=== PATIENT | female | born 1965 | race Caucasian/White ===

== ENCOUNTER 2017-08-25 09:21 | Emergency (ER) | payer OTHER ==
[~2017-08-25] VITALS: Ht 162.6 cm; Wt 107.0 kg
[~2017-08-25 09:21] MED LIST: KETO10TA2 PO; SYNTHROID137 MCG
== END 2017-08-25 12:13 | disposition home or self-care (01) ==
LOC: ER 09:21
DX: B34.9 Viral infection, unspecified (principal)

== ENCOUNTER 2018-12-29 10:57 | Outpatient (CLI) | payer OTHER ==
[~2018-12-29 10:57] MED LIST changes: -SYNTHROID137 MCG; +SYNTHROID137 MCG PO
== END 2018-12-29 11:31 | disposition home or self-care (01) ==
LOC: LAB 10:57
DX: Z01.810 Encounter for preprocedural cardiovascular examination (principal); Z85.3 Personal history of malignant neoplasm of breast; Z01.812 Encounter for preprocedural laboratory examination

== ENCOUNTER 2019-01-02 10:15 | Inpatient (IN) | payer OTHER ==
[~2019-01-02] VITALS: Ht 162.6 cm; Wt 86.2 kg
[2019-01-02] MEDS ORDERED: VITAMIN D2000 UNIT PO (12:13)
[2019-01-02] MEDS ORDERED: OMEGA 3-6-9 CO400 MG PO (12:14)
== END 2019-01-07 10:38 | disposition home or self-care (01) | DRG 583 ==
LOC: SURG 10:15 → O/R 01-06 06:23 → SURG 01-06 07:00 → SURH 01-06 11:31
PROVIDERS: ADMIT Specialist
PROC: 07T60ZZ Resection of Left Axillary Lymphatic, Open Approach (ICD-10-PCS; 2019-01-06)
PROC: 0HTU0ZZ Resection of Left Breast, Open Approach (ICD-10-PCS; principal; 2019-01-06 07:00)
DX: C50.912 Malignant neoplasm of unspecified site of left female breast (principal); E03.4 Atrophy of thyroid (acquired)